=== PATIENT | male | born 1985 | race African-American/Black ===

== ENCOUNTER 2020-08-25 06:37 | Emergency (ER) | payer MEDICARE, MEDICAID ==
[~2020-08-25] VITALS: Ht 167.6 cm; Wt 72.8 kg
[~2020-08-25 06:37] MED LIST: ALLOPURINOL PO; AMLO10TA4 PO; CLON0.2T PO; HYDR200T80 PO; INSULIN GLARGINE SUBCUT; P20 PO
[2020-08-25 09:11] LABS: BASOPHILS % 0.5 % (0.0-2.0); EOSINOPHILS % 0.6 % (0.0-5.0); HEMATOCRIT. 42.9 % (42.0-52.0); HEMOGLOBIN. 15.1 g/dL (14.0-18.0); LYMPHOCYTES % 32.2 % (20.0-50.0); MEAN CORPUSCULAR HEMOGLOBIN 30.1 pg (28.0-32.0); MEAN CORPUSCULAR VOLUME 85.6 fL (80.0-94.0); MEAN PLATELET VOLUME 9.4 fl (7.4-10.4); NEUTROPHILS % 55.7 % (40.0-76.0); PLATELET 193 x1000/uL (130-400); RED BLOOD CELL COUNT 5.01 mill/uL (4.7-6.1); RED CELL DISTRIBUTION WIDTH 14.4 % (11.6-14.6)
[2020-08-25 09:39] LABS: CHLORIDE 110 mEq/L (98-107)
[2020-08-25 09:43] LABS: ETHANOL BLOOD < 10 mg/dL
[2020-08-25] MEDS ORDERED: POLY17PO3 MT (09:56)
[2020-08-25] MEDS ORDERED: IBUP-2029 MT (09:56)
[2020-08-25 10:02] VITALS: BP 116/88
== END 2020-08-25 10:08 | disposition home or self-care (01) ==
LOC: ER 06:37
DX: K59.00 Constipation, unspecified (principal); T50.903A Poisoning by unspecified drugs, medicaments and biological substances, assault, initial encounter; I10 Essential (primary) hypertension; M32.9 Systemic lupus erythematosus, unspecified; R41.82 Altered mental status, unspecified; T18.5XXA Foreign body in anus and rectum, initial encounter; X58.XXXA Exposure to other specified factors, initial encounter; Y93.89 Activity, other specified; Y92.89 Other specified places as the place of occurrence of the external cause
CPT/HCPCS: 36415; 74018; 80053; 80305; 80307; 80320; 80329; 81003; 85025; 99284; G0480